=== PATIENT | male | born 1990 | race African-American/Black ===

== ENCOUNTER 2016-12-18 23:02 | Emergency (ER) | payer SELFPAY ==
[~2016-12-18] VITALS: Ht 190.5 cm; Wt 81.8 kg
[2016-12-18 23:08] VITALS: BP 144/88; PULSE 102; RESP 16; O2SAT 100
--- NOTE | 2016-12-19 00:13 | ED.REPORT ---
HPI-General Illness Date of Service Dec 19, 2016 ED Provider: Mohamud Egan MD Patient is a 26 year old male who presents to the ED with an abscess to his right lower cheek that he first noticed 2-3 days ago. Patient states that it is painful and swollen. The patient believes that the wound started as an ingrown hair and that he has had a similar abscess in the past. He uses an electric razor to shave. He denies any associated dental pain or fever. The patient admits that he has been picking at the area and he also briefly tried applying a warm compress. Nursing Notes Stated Complaint: SKIN RASH/ ABSCESS Chief Complaint: Skin Rash/Abscess Nursing Notes Reviewed: Yes Allergies: Coded Allergies: No Known Allergies (Unverified , 12/18/16) General Time Seen by MD: 00:12 Chief Complaint Other (abscess right cheek) Hx Obtained From: Patient Arrived By: Walk-in Sudden in Onset?: No Onset Occurred: 3 days ago Symptom Duration: Since onset Quality: Painful Severity: Current: Moderate Severity: Maximum: Moderate Recent Healthcare: No recent doctor visit, No recent hospitalization Similar Sx Previous: Yes Past Medical History Past Medical History none reported Past Surgical History none reported Smoking History Unknown if Ever Smoker Social History Other Social History: Good social support, Local resident Ambulatory Status Independent Review of Systems + abscess to right lower jaw Full Review of Systems Constitutional: Denies: Chills, Fever Ears / Nose / Throat: Denies: Toothache Complete sys rev & neg: except as marked. Physical Exam Vital Signs Vital Signs Date Time Temp Pulse Resp B/P Pulse Ox O2 Delivery O2 Flow Rate FiO2 12/18/16 23:08 36.4 102 16 144/88 100 Room Air Initial VS: Reviewed Extremities: Vascular intact, Neuro intact Skin: Warm, Dry, No cyanosis Neurologic: Alert, Oriented, Nonfocal Psychiatric: Mood/affect normal, Behavior normal, Normal thought content General/Constitutional: Awake, Alert, No acute distress Head / Eyes: Normocephalic, PERRL ENT: Airway patent, Mucous membranes moist Respiratory / Chest: No respiratory distress, No stridor Cardiovascular: Heart rate NL, Regular rhythm Skin: Warm, Dry Abscess #1 Location/Condition: Positive: Location (right lower cheek/jaw), Small (firm, .5cm nodule, maybe fluctuant) Procedures Incision & Drainage Abscess I & D Abscess: 3mm incision, straight down sharply dissected with scissor point Time: 00:44 Procedure Performed by: ED physician Consent / Setup / Site Prep: Consent from patient, Time-out performed, Hand hygiene observed, Stand sterile technique, Sterile drapes applied Location of Abscess: right lower cheek/jaw Skin Preparation Agent: Hibiclens - Chlorhexidine Local Anesthesia: Other (Xylocaine 1% with epi) Incised Abscess with Scalpel: #15 Pus Drained: Small, Purulent discharge Irrigation: No Post-Procedure / Complications: Dressing applied, Condition improved, Tolerated procedure well, Patient stable Re-Eval/Medical Decision Med Decision/Clinical Course 26-year-old with recurrence abscesses initiating areas presents with an nodular lesion in the right cheek is quite painful. This was incised and drained in standard fashion as detailed above. There was considerable pressure and a small amount of pus produced upon dissection in the center of the abscess. He tolerated this well and was discharged out of bacitracin dressing for hot soaks and dressings until healed. Time of Eval: 00:44 Patient Status: Condition improved Re-Evaluation/Progress Note: I&D performed. Patient understands and agrees with the plan to be discharged home. Discharge instructions and follow-up discussed. All questions were addressed. Return to the ED warnings given. Counseled Regarding: Diagnosis, Need for follow-up, When/why to return to ED Discharge & Departure Primary Impression: Abscess of right external cheek Disposition: Home Discharge Condition All VS Reviewed: Yes Condition: Stable Patient Instructions: Abscess Incision and Drainage (ED) Additional Instructions: Hot water soak for five times daily, then redress with bacitracin and continue until healed. Follow-up with your doctor in the office. Return if any immediate issues. Scribe Attestation Portions of this note were transcribed by Torri Conrad. I, Dr. Egan personally performed the history, physical exam and medical decision-making; I reviewed and confirmed the accuracy of the information in the transcribed note. Signed by: Meri Cuevas, 12/19/2016 0323 Mohamud Egan MD Dec 19, 2016 00:12 Torri Conrad Dec 19, 2016 00:21
== END 2016-12-19 01:08 | disposition home or self-care (01) ==
LOC: SED 23:02
DX: L02.01 Cutaneous abscess of face (principal)